=== PATIENT | female | born 1990 | race Caucasian/White ===

== ENCOUNTER 2017-01-22 19:59 | Outpatient (CLI) | payer OTHER ==
[~2017-01-22] VITALS: Ht 167.6 cm; Wt 72.6 kg
[2017-01-22 20:13] VITALS: BP 135/70; PULSE 76; RESP 18; Ht 167.6 cm; Wt 72.6 kg
[2017-01-22] MEDS ORDERED: PRENAT PO (21:01)
--- NOTE | 2017-01-23 00:05 | RADRPT ---
PROCEDURE: OB ultrasound for biophysical profile CLINICAL INDICATION: Contractions. TECHNIQUE: Multiple sonographic images of the pelvis were obtained. Transabdominal view of the gr avid uterus are available for review. The images were reviewed on a PACS workstation. COMPARISON: None FINDINGS: breathing movement = 2/2 tone = 2/2 motion = 2/2 Amniotic fluid = 2/2 KY = 8.1 cm Single live intrauterine in cephalic presentation with cardiac activity (146 bpm). Left lateral placenta, grade 2. IMPRESSION: 1. Single viable intrauterine gestation. 2. Biophysical profile = 8/8. 3. KY = 8.1 cm. RPTAT: HTAR .Colby Pang MD, Date Time Electronically viewed and signed by .Colby Pang MD, MD on 01/23/2017 00:04 .R/
--- NOTE | 2017-01-23 02:07 | QN ---
Documentation Comment 26-year-old with IUP at 39 weeks and 4 days with care at [facility], [place] presented with complaint of contractions. She denied any leaking of fluid, vaginal bleeding or decreased movement. She was noted to be 2 and half centimeter 80% effaced station -3. heart tracing was category 1. SAW January 25, 2017. She had been observed and walked for 2 hours and repeat exam did not show any change. Physical examination: General appearance alert and oriented 4 and is in mild distress. Abdomen: Soft, gravid, no tenderness, no rebound tenderness no guarding no rigidity NST: Category 1 BPP 8/8 KY: 8 Patient has been observed for 2 hours and after repeat exam did not show any change. PROCEDURE: OB ultrasound for biophysical profile CLINICAL INDICATION: Contractions. TECHNIQUE: Multiple sonographic images of the pelvis were obtained. Transabdominal view of the gravid uterus are available for review. The images were reviewed on a PACS workstation. COMPARISON: None FINDINGS: breathing movement = 2/2 tone = 2/2 motion = 2/2 Amniotic fluid = 2/2 KY = 8.1 cm Single live intrauterine in cephalic presentation with cardiac activity (146 bpm). Left lateral placenta, grade 2. IMPRESSION: 1. Single viable intrauterine gestation. 2. Biophysical profile = 8/8. 3. KY = 8.1 cm. Assessment: IUP at 3 9 weeks and 4 days False labor pain None in labor testing reassuring Plan: DC home Strict labor precaution and kick count Follow up with [facility], [place] in 2-3 days for NST Return to triage if she has more regular contractions leaking of fluid vaginal bleeding decreased movement or any other concerns. Next Patient verbalized understanding. ZULEMA REVELES MD Jan 23, 2017 02:07
== END 2017-01-23 00:29 | disposition home or self-care (01) ==
LOC: OBT 19:59 → L-D 20:00 → OBT 01-23 00:29
PROVIDERS: ATTEND Obstetrics & Gynecology
DX: O47.1 False labor at or after 37 completed weeks of gestation (principal); Z3A.39 39 weeks gestation of pregnancy
CPT/HCPCS: 76818; Z7500; G0463

== ENCOUNTER 2017-01-23 02:25 | Inpatient (IN) | payer OTHER ==
[~2017-01-23 02:25] MED LIST: PRENAT PO
[2017-01-23] MEDS ORDERED: LACTATED RINGER'S 1,000 ML IV SCH (02:29)
[2017-01-23] MEDS ORDERED: METHYLERGONOVINE 0.2 MG INJ IM PRN ×2 (02:30→04:30)
[2017-01-23] MEDS ORDERED: LACTATED RINGER'S 1,000 ML IV PRN (02:30)
[2017-01-23] MEDS ORDERED: BUTORPHANOL 2 MG INJ IV PRN ×2 (02:30)
[2017-01-23] MEDS ORDERED: OXYTOCIN 30 UNITS/LR 500 ML IV PRN ×2 (02:30→04:30)
[2017-01-23] MEDS ORDERED: IBUPROFEN 600 MG TAB PO PRN (02:30)
[2017-01-23] MEDS ORDERED: OXYTOCIN 30 UNITS/LR 500 ML IV SCH ×2 (02:30)
[2017-01-23] MEDS ORDERED: CARBOPROST 250 MCG INJ IM PRN ×2 (02:30→04:30)
[2017-01-23] MEDS ORDERED: LIDOCAINE 1% (MPF) 30 ML INJ INJ PRN (02:30)
[2017-01-23] MEDS ORDERED: MISOPROSTOL 200 MCG TAB PR PRN ×2 (02:30→04:30)
[2017-01-23 02:44] LABS: ADD SCAN DIFF NO
[2017-01-23 02:51] LABS: BASOPHILS % 0.1 % (0.0-2.0); EOSINOPHILS % 0.2 % (0.0-7.0); HEMATOCRIT 37.5 % (37.0-47.0); HEMOGLOBIN 13.2 g/dl (12.0-16.0); LYMPHOCYTES # 2.8 10^3/ul (0.8-2.9); LYMPHOCYTES % 17.9 % (15.0-51.0); MEAN CORPUSCULAR HEMOGLOBIN 32.2 pg (29.0-33.0); MEAN CORPUSCULAR HGB CONC 35.2 g/dl (32.0-37.0); MEAN CORPUSCULAR VOLUME 91.5 fl (82.0-101.0); MEAN PLATELET VOLUME 11.8 fl (7.4-10.4); MONOCYTE # 0.8 10^3/ul (0.3-0.9); MONOCYTES % 5.3 % (0.0-11.0); NEUTROPHIL # 11.7 10^3/ul (1.6-7.5); PLATELET COUNT 156 10^3/UL (140-415); RED CELL DISTRIBUTION WIDTH 12.4 % (11.5-14.5); WHITE BLOOD COUNT 15.4 10^3/ul (4.8-10.8)
--- NOTE | 2017-01-23 02:58 | TRIAGE ---
OB Triage Datetime Report Generated by CPN: 01/23/2017 02:58 Datetime: 01/23/2017 02:50 Assessment Type: Admission Assessment Vaginal Bleeding: Normal Show Maternal Assessment Level of Consciousness: Fully Conscious DTR's/Clonus: DTRs 2+; No Clonus Headache: Denies Blurred Vision: No Respiratory Effort: Unlabored; Regular Rhythm; Equal Expansion Breath Sounds, Left: Clear and Equal Breath Sounds, Right: Clear and Equal Nausea/Vomiting: Denies RUQ Epigastric Pain: Denies Lower Extremities Edema: None Degree: None Upper Extremities Edema: None Degree: None Facial Edema: None Fall Risk Assessment History of Falling: (0) No Secondary Diagnosis: (0) No Ambulatory Aid: (0) Bedrest/Nurse Assist IV Therapy: (20) Yes Gait: (0) Normal/Bedrest/Immobile Mental Status: (0) Oriented to Own Ability Fall Score: 20 Fall Risk Score Definition: No Risk: No action required Pain Assessment Pain Scale: 10 Pain Presence: Constant Pain Type: Contraction Pain Location: Abdomen; Back; Perineum Pain Goal: 0 Datetime: 01/23/2017 02:45 Time of Arrival: 01/23/2017 02:20 EGA: 39.5 Arrived By: Stretcher Datetime: 01/23/2017 02:39 Effacement (%): 100 Station: -1 Datetime: 01/23/2017 02:38 Vaginal Exam Dilatation (cms): 4.5 Datetime: 01/23/2017 02:29 Vaginal Exam Dilatation (cms): 5.0 Effacement (%): 100 Station: -1 Exam By: CH Datetime: 01/23/2017 02:20 Time of Arrival: 01/23/2017 02:20 EGA: 39.5 Arrived By: Wheelchair Arrived From: Home Movement: Present Contractions: Regular Rupture of Membranes: Unsure Vaginal Bleeding: Normal Show Vaginal Discharge: Denies Recent Sexual Intercouse: Denies Abdominal Trauma: Not Applicable Patient Complaints: Contractions Additional Patient Complaints: UC's Time Provider Notified: 01/23/2017 02:21 Datetime: 01/23/2017 00:13 Stage of : OB Triage Labor Evaluation Frequency: irregular Monitor Mode: External Duration (sec)2399: 40-80 Quality: Mild Pattern: Normal: <= 5 Contractions in 10 Minutes Resting Tone [place]: Relaxed Heart Rate FHR Baseline Rate: 125 Monitor Mode: External US Variability: Moderate 6-25 bpm Accelerations: 15X15 Decelerations: Early Category: Category I Pain Assessment Pain Scale: 4 Pain Presence: Intermittent Pain Type: Contraction Pain Location: Abdomen Pain Goal: 2 Pain Relief Measures: Comfort Measures Datetime: 01/22/2017 22:27 Vaginal Exam Dilatation (cms): 3.0 Effacement (%): 90 Station: -3 Exam By: MS Datetime: 01/22/2017 20:50 Stage of : OB Triage Labor Evaluation Frequency: irregular Monitor Mode: External Duration (sec)2399: 40-60 Quality: Mild Pattern: Normal: <= 5 Contractions in 10 Minutes Resting Tone [place]: Relaxed Heart Rate FHR Baseline Rate: 125 Monitor Mode: External US Variability: Moderate 6-25 bpm Accelerations: 15X15 Decelerations: None Category: Category I Pain Assessment Pain Scale: 4 Pain Presence: Intermittent Pain Type: Contraction Pain Location: Abdomen Pain Goal: 3 Pain Relief Measures: Comfort Measures Datetime: 01/22/2017 20:20 Stage of : OB Triage Assessment Type: Triage Maternal Assessment Level of Consciousness: Fully Conscious DTR's/Clonus: DTRs 2+; No Clonus Headache: Denies Blurred Vision: No Respiratory Effort: Unlabored Nausea/Vomiting: Denies RUQ Epigastric Pain: Denies Lower Extremities Edema: None Degree: None Upper Extremities Edema: None Degree: None Facial Edema: None Fall Risk Assessment History of Falling: (0) No Secondary Diagnosis: (0) No Ambulatory Aid: (0) Bedrest/Nurse Assist IV Therapy: (0) No Gait: (0) Normal/Bedrest/Immobile Mental Status: (0) Oriented to Own Ability Fall Score: 0 Fall Risk Score Definition: No Risk: No action required Vaginal Exam Dilatation (cms): 2.5 Effacement (%): 80 Station: -3 Exam By: Membrane Status: Intact Datetime: 01/22/2017 20:10 Time of Arrival: 01/22/2017 19:57 EGA: 39.4 Arrived By: Ambulatory Arrived From: Home Chief Complaint: UC's Movement: Present Contractions: Irregular Time Contractions Began: 01/21/2017 04:00 Contractions: 7-10 Rupture of Membranes: Denies Vaginal Bleeding: Scant Vaginal Discharge: Present Recent Sexual Intercouse: Denies Abdominal Trauma: Not Applicable Patient Complaints: Contractions Time Provider Notified: 01/22/2017 20:00 Provider Notified: Fran Initial Plan: JEFF ALCARAZ
[2017-01-23 03:21] LABS: INR 0.9; PROTIME 12.1 Sec (12.2-14.2); PT RATIO 0.9
[2017-01-23 03:22] LABS: PARTIAL THROMBOPLASTIN TIME 25.1 Sec (25.0-35.0)
--- NOTE | 2017-01-23 04:04 | HP ---
Date/Time of Note Date/Time of Note DATE: 01/23/17 TIME: 04:02 OB - History Hx of Present Free Text/Dictation 26-year-old with IUP at 39 weeks and 5/ 7 with care at [facility], presented with complaint of contractions and she was noted to be 4-5 cm 80%. Her GBS negative. Antepartum course non-complicated. : 2 Para: 1 Care: Good Care Obstetrical Complications: None Past Family/Social History * Past Medical, Surgical, Family and Obstetric Histories reviewed from chart. Blood Type: B- Rubella: immune RPR/VDRL: Negative GBS Status: Negative HBsAG: Negative OB Admission Exam Physical Exam HEENT: WNL Heart: Rhythm Normal Lungs: Clear Abdomen: WNL Extremities: Normal Reflexes: Normal Cervical Dilatation: 4cm Effacement: 75% Station: -1 Membranes: Intact Amniotic Fluid: Thin Meconium Heart Rate: 120's Accelerations: Accelerations Present Decelerations: Variable Decelerations Varibility: Moderate Contractions on Admission: < 5 Minutes Apart Intensity: Firm Last 72 hours Lab Results CBC & BMP 01/23/17 02:30 OB Assessment/Plan Reason for admission: active labor Other Assessment: IUP at 39 weeks and 5/7 Active labor GBS negative Plan: Expectant Management Other plan: Admit Anticipate ZULEMA GARCIA MD Jan 23, 2017 04:04
--- NOTE | 2017-01-23 04:06 | LDN ---
Date/Time of Note Date/Time of Note DATE: 01/23/17 TIME: 04:04 Delivery Summary Patient admitted due to labor at 45 cm and shortly after admission she became complete and was pushing Weeks of Gestation 39 5/7 weeks Placenta Delivered: Spontaneously Meconium: Light Episiotomy: No Perineal laceration: 1 Laceration repair: First-degree bilateral labial laceration. Repaired with 3-0 chromic after adequate local anesthesia with lidocaine Anesthesia type: Local Estimated blood loss: 100 Sponge & Needle done & correct: Yes All needle counts correct: Yes Any foreign bodies felt in the: No Problems: Infant Delivery Information Sex Infant Sex: male Apgars 1 Minute: 8 5 Minute: 9 Suctioning Nose & mouth suctioned at radha: Yes Delee suction performed: Yes Umbilical Cord Umbilical cord with: 3 Vessels Cord presentations: no nuchal cord Cord Blood was obtained: Yes ZULEMA REVELES MD Jan 23, 2017 04:06
[2017-01-23] MEDS ORDERED: ONDANSETRON 4 MG INJ IV PRN (04:30)
[2017-01-23] MEDS ORDERED: DIPHENHYDRAMINE 25 MG CAP PO PRN (04:30)
[2017-01-23] MEDS ORDERED: morphine 2 MG INJ IV PRN (04:30)
[2017-01-23] MEDS ORDERED: ACETAMINOPHEN 325 MG TAB PO PRN (04:30)
[2017-01-23] MEDS ORDERED: ZOLPIDEM 5 MG TAB PO PRN (04:30)
[2017-01-23] MEDS ORDERED: WITCH HAZEL/GLYCERIN PAD PR PRN (04:30)
[2017-01-23 05:35] VITALS: BP 139/76; PULSE 64; RESP 19
[2017-01-23] MEDS: LACTATED RINGER'S 1,000 ML IV* SCH ×2 (05:35→12:06)
[2017-01-23] MEDS: IBUPROFEN 600 MG TAB PO SCH ×3 (06:00→17:57)
--- NOTE | 2017-01-23 06:10 | DELSUM ---
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 Babies in Womb: 1 Attempted: No Labor Anesthesia: None LABOR INFORMATION Reason for Induction: Not Applicable Onset of Labor: 01/23/2017 01:30 Complete Dilatation: 01/23/2017 03:10 Oxytocin: N/A Group B Beta Strep: Negative Group B Beta Strep: Negative Steroids Given: None Reason Steroids Not Administered: Not Applicable MEMBRANES Membranes Rupture Method: Spontaneous Rupture of Membranes: 01/23/2017 02:00 Length of Rupture (hr): 1.72 Amniotic Fluid Color: Light Meconium Amniotic Fluid Amount: Small Amniotic Fluid Odor: None STAGES OF LABOR Stage 1 hr: 1 Stage 1 min: 40 Stage 2 hr: 0 Stage 2 min: 33 Stage 3 hr: 0 Stage 3 min: 11 Total Time in Labor hr: 2 Total Time in Labor min: 24 VAGINAL DELIVERY Episiotomy: None Laceration Extension: First Degree Other Laceration: LABIAL Laceration Repair: Yes Initial Vag Sponge Count: 20 Final Vag Sponge Count: 20 Initial Vag Sharps Count: 1 Final Vag Sharps Count: 2 Sponge Count Correct: Yes Sharps Count Correct: Yes BABY A INFORMATION Infant Delivery Date/Time: 01/23/2017 03:43 Method of Delivery: Vaginal Born in Route : No : N/A Forceps: N/A Vacuum Extraction: N/A Shoulder Dystocia : No SHOULDER DYSTOCIA BABY A Infant Delivery Date/Time: 01/23/2017 03:43 PRESENTATION/POSITION BABY A Presentation: Cephalic Cephalic Presentation: Vertex Vertex Position: Left Occipital Anterior Breech Presentation: N/A PLACENTA INFORMATION BABY A Placenta Delivery Time : 01/23/2017 03:54 Placenta Method of Delivery: Spontaneous Placenta Status: Delivered SCORES BABY A Heart Rate 1 min: >100 bpm Resp Effort 1 min: Good Cry Reflex Irritability 1 min: Cough/Sneeze/Pulls Away Muscle Tone 1 min: Active Motion Color 1 min: Blue/Pale Resuscitation Effort 1 min: Tactile Stimulation SCORE 1 MIN: 8 Heart Rate 5 min: >100 bpm Resp Effort 5 min: Good Cry Reflex Irritability 5 min: Cough/Sneeze/Pulls Away Muscle Tone 5 min: Active Motion Color 5 min: Body [place], Extremit Blue Resuscitation Effort 5 min: Tactile Stimulation SCORE 5 MIN: 9 INFORMATION BABY A Gestational Age at Delivery: 39.5 Gestational Status: Full Term- 39- 40.6 Weeks Infant Outcome : Liveborn Condition : Stable Infant Sex: Male IDENTIFICATION/MEDS BABY A ID Band Number: [id number] ID Band Location: Right Leg; Left Arm Sensor Applied: Yes Sensor Number: [id number] Sensor Location : Cord Clamp Vitamin K Given : Not Given Erythromycin Given: Not Given WEIGHT/LENGTH BABY A Infant Birthweight (gm): 3155 Infant Weight (lb): 6 Infant Weight (oz): 15 Infant Length (in): 19.00 Infant Length (cm): 48.26 CORD INFORMATION BABY A No. Cord Vessels: 3 Nuchal Cord : N/A Cord Blood Taken: Yes Suction: Mouth; Nose ASSESSMENT BABY A Complications: Decreased Variability Physical Findings at Delivery: Caput Succedaneum Respirations: Appears Normal Piler/ALS Called : No Infant Care By: GERONIMO CUMMINGS Transferred To: Remains with Mother
[2017-01-23 08:20] VITALS: BP 118/65; PULSE 76; RESP 18
[2017-01-23] MEDS: MULTIVIT/MIN/FOLATE/IRON/PREN TAB PO SCH (09:14)
[2017-01-23] MEDS: SENNA/DOCUSATE NA (8.6MG/50MG) TAB PO SCH ×2 (09:14→21:58)
[2017-01-23 16:00] VITALS: BP_SYST 72; PULSE 72; RESP 18
[2017-01-23] MEDS: LANOLIN 7 GM TUBE TOP PRN (17:57)
[2017-01-23 20:00] VITALS: BP 107/49; PULSE 55; RESP 18
[2017-01-24] MEDS: IBUPROFEN 600 MG TAB PO SCH ×4 (00:14→18:11)
[2017-01-24 04:00] VITALS: BP 100/50; PULSE 58; RESP 18
[2017-01-24 07:50] LABS: HEMATOCRIT 36.7 % (37.0-47.0); HEMOGLOBIN 12.5 g/dl (12.0-16.0)
[2017-01-24 08:14] VITALS: BP 102/54; PULSE 90; RESP 20
[2017-01-24] MEDS: SENNA/DOCUSATE NA (8.6MG/50MG) TAB PO SCH ×2 (09:45→21:40)
[2017-01-24] MEDS: MULTIVIT/MIN/FOLATE/IRON/PREN TAB PO SCH (09:45)
[2017-01-24] MEDS: LANOLIN 7 GM TUBE TOP PRN (13:09)
--- NOTE | 2017-01-24 14:26 | PN ---
Date/Time of Note Date/Time of Note DATE: 01/24/17 TIME: 14:25 OB Subjective Subjective Subjective day Afebrile vital signs are stable abdomen soft uterus lochia normal extremity normal Laboratory Tests Test 01/24/17 06:25 Hemoglobin 12.5g/dl Hematocrit 36.7% Current Medications Medications (Trade) Dose Ordered Sig/Denisse Route PRN Reason Start Time Stop Time Status Last Admin Dose Admin Lactated Ringer's (Lr) 1,000 ml @ 125 mls/hr Q8H IV 01/23/17 02:29 01/23/17 04:08 DC 01/23/17 02:58 Butorphanol Tartrate (Stadol) 1 mg Q2H PRN IV PAIN 01/23/17 02:30 01/23/17 04:08 DC Butorphanol Tartrate (Stadol) 2 mg Q2H PRN IV PAIN 01/23/17 02:30 01/23/17 04:08 DC Lidocaine 30 ml 30 ml ONCE PRN INJ EPISIOTOMY/TEARING 01/23/17 02:30 01/23/17 04:09 DC Oxytocin/Lactated Ringer's 500 ml @ 125 mls/hr ONCE -MAY REPEAT X1 IV 01/23/17 02:30 01/23/17 04:09 DC 01/23/17 03:53 Oxytocin/Lactated Ringer's 500 ml @ 125 mls/hr ONCE IV 01/23/17 02:30 01/23/17 04:09 DC Ibuprofen 600 mg 600 mg ONCE PRN PO Mild Pain (Pain Score 1-3) 01/23/17 02:30 01/23/17 04:10 DC Lactated Ringer's 1,000 ml @ 2,000 mls/hr Q30M PRN IV PRE-EPIDURAL BOLUS 01/23/17 02:30 01/23/17 04:10 DC Oxytocin/Lactated Ringer's 500 ml @ 0 mls/hr ONCE PRN IV For Hemorrhage Management 01/23/17 02:30 01/23/17 04:10 DC Methylergonovine Maleate (Methergine) 0.2 mg ONCE PRN IM VAGINAL BLEEDING 01/23/17 02:30 01/23/17 04:10 DC Carboprost Tromethamine (Hemabate) 250 mcg ONCE PRN IM VAGINAL BLEEDING 01/23/17 02:30 01/23/17 04:10 DC Misoprostol 1000 mcg 1,000 mcg ONCE PRN MN VAGINAL BLEEDING 01/23/17 02:30 01/23/17 04:10 DC Lactated Ringer's (Lr) 1,000 ml @ 125 mls/hr Q8H IV* 01/23/17 04:06 01/23/17 18:31 DC 01/23/17 05:35 Morphine Sulfate (morphine) 1 mg Q3 PRN IV PAIN LEVEL 6-10 01/23/17 04:30 Ibuprofen (Motrin) 600 mg Q6 PO 01/23/17 06:00 01/24/17 13:09 Ondansetron HCl (Zofran Inj) 4 mg Q6H PRN IV NAUSEA AND/OR VOMITING 01/23/17 04:30 Diphenhydramine HCl (Benadryl) 25 mg Q6H PRN PO PRURITUS 01/23/17 04:30 Zolpidem Tartrate (Ambien) 5 mg QHS PRN PO INSOMNIA 01/23/17 04:30 Senna/Docusate Sodium (Senokot-S) 1 tab BID PO 01/23/17 09:00 01/24/17 09:45 Witch Halima/ Glycerin (Tucks Pads) 1 pad BEDSIDE MEDICATION PRN MN HEMORRHOID/EPISIOTMY PAIN 01/23/17 04:30 01/23/17 22:06 Measles/Mumps/ Rubella Vaccine Live (Mmr Ii Vaccine) 0.5 ml ONCE ONCE SC* 01/25/17 09:00 01/25/17 09:01 Diphtheria/ Tetanus/Acell Pertussis (Adacel) 0.5 ml ONCE ONCE IM* 01/25/17 09:00 01/25/17 09:01 Varicella Virus Vaccine Live (Varivax Vaccine With Diluent) 1,350 unit ONCE ONCE SC* 01/25/17 09:00 01/25/17 09:01 Acetaminophen 650 mg 650 mg Q4H PRN PO ELEVATED TEMPERATURE 01/23/17 04:30 01/24/17 09:46 Oxytocin/Lactated Ringer's 500 ml @ 0 mls/hr ONCE PRN IV For Hemorrhage Management 01/23/17 04:30 Methylergonovine Maleate (Methergine) 0.2 mg ONCE PRN IM VAGINAL BLEEDING 01/23/17 04:30 Carboprost Tromethamine (Hemabate) 250 mcg ONCE PRN IM VAGINAL BLEEDING 01/23/17 04:30 Misoprostol (Cytotec) 1,000 mcg ONCE PRN MN VAGINAL BLEEDING 01/23/17 04:30 Prenat Multivit/ Structural Metal Fabricator Apprentice/Iron/Folic Ac ( S) 1 tab DAILY PO 01/23/17 09:00 01/24/17 09:45 Lanolin ([id number]) 1 applic BEDSIDE PRN TOP BEDSIDE FOR DUTCH TO NIPPLES 01/23/17 17:00 01/24/17 13:09 ROXANE STEPHENS MD Jan 24, 2017 14:26
[2017-01-24 14:40] VITALS: BP 121/73; PULSE 60; RESP 20
[2017-01-24 20:30] VITALS: BP 104/53; PULSE 57; RESP 18
[2017-01-25] MEDS: IBUPROFEN 600 MG TAB PO SCH ×3 (00:07→11:48)
[2017-01-25 04:00] VITALS: BP 107/65; PULSE 58; RESP 18
[2017-01-25 08:10] VITALS: BP 106/60; PULSE 62; RESP 18
[2017-01-25] MEDS ORDERED: DIPHTH/TET/ACEL PERTUSS (ADULT) 0.5 ML VIAL IM* ONE (09:00)
[2017-01-25] MEDS ORDERED: VARICELLA VACCINE LIVE/PF 1,350 UNIT/0.5 ML ML SC* ONE (09:00)
[2017-01-25] MEDS ORDERED: MEASLES,MUMPS,RUBELLA VACCINE INJ SC* ONE (09:00)
[2017-01-25] MEDS: SENNA/DOCUSATE NA (8.6MG/50MG) TAB PO SCH (10:05)
[2017-01-25] MEDS: MULTIVIT/MIN/FOLATE/IRON/PREN TAB PO SCH (10:05)
--- NOTE | 2017-01-25 12:43 | PD.PPDC ---
MANUFACTURING SALES REPRESENTATIVE Discharge Instruction Condition Patient Condition: Good Diet Diet: Resume Regular Diet Activity/Restrictions Activity: Normal Activity May Shower Restrictions: No Exercising No Lifting No Driving No Sexual Activity Nothing in the Vagina No [place] No Tampons, douche Follow-up Follow-up with Physician: 2, Week/Weeks Provider Information: Appointment clinic in 2 weeks Return to clinic for TRANSMITTER ENGINEER IN CHARGE Instructions: Fever greater than 101 Worsening abdominal pain More than 2 pads per hour OB Instructions: Headache ROXANE STEPHENS MD Jan 25, 2017 12:43
--- NOTE | 2017-01-25 12:45 | DS ---
Date/Time of Note Date/Time of Note DATE: 01/25/17 TIME: 12:43 Obstetrical Discharge Record Final Diagnosis Final Diagnosis: Term delivered Vaginal Delivery Obstetrical Delivery: Spontaneous Condition on Discharge Physical Assessment Last Vitals: day 2 vital signs stable abdomen soft uterus firm lochia normal stringently normal advised to make appointment for check in 2 weeks Voiding: Yes Bowel Movement: Yes Calf Tenderness: No Patient Condition: Good ROXANE STEPHENS MD Jan 25, 2017 12:45
== END 2017-01-25 14:05 | disposition home or self-care (01) | DRG 775 ==
LOC: L-D 02:25 → OBT 02:25 → L-D 02:26 → PP1 05:35
PROVIDERS: ADMIT Obstetrics & Gynecology; ATTEND Obstetrics & Gynecology
PROC: 10E0XZZ Delivery of Products of Conception, External Approach (ICD-10-PCS; principal; 2017-01-23)
PROC: 0HQ9XZZ Repair Perineum Skin, External Approach (ICD-10-PCS; 2017-01-23)
DX: O70.0 First degree perineal laceration during delivery (principal); Z37.0 Single live birth; Z3A.39 39 weeks gestation of pregnancy
CPT/HCPCS: 36415; 85014; 85018; 85025; 85610; 85730; 86592; 86850; 86870; 86885; 86900; 86901; 87340; 90715; 90716; G0463; J2590; J2790; J7120